=== PATIENT | female | born 1995 | race Two or more races ===

== ENCOUNTER 2025-02-21 20:06 | Emergency (ER) | payer MEDICAID, OTHER ==
[~2025-02-21] VITALS: Ht 160 cm; Wt 71.0 kg
[2025-02-21 20:30] VITALS: BP 109/63; PULSE 92; RESP 20; TEMP 97.7; O2SAT 100
== END 2025-02-21 20:40 | disposition left against medical advice (07) ==
LOC: ER 20:06
DX: R10.9 Unspecified abdominal pain (principal); Z53.21 Procedure and treatment not carried out due to patient leaving prior to being seen by health care provider